=== PATIENT | female | born 1980 | race Caucasian/White ===

== ENCOUNTER 2017-12-04 20:10 | Inpatient (IN) | payer OTHER ==
[~2017-12-04] VITALS: Ht 172.7 cm; Wt 93.0 kg
--- NOTE | ~2017-12-04 | OR ---
[facility] [address], [place] [address] Draft DATE OF OPERATION: 12/04/2017 SURGEON: Alethea Arellano MD CARPET OR RUG LAYER HELPER: Sajan Fontenot MD PREOPERATIVE DIAGNOSIS: Premature rupture membranes at 35 and 6/7th weeks previous section breech presentation. POSTOPERATIVE DIAGNOSIS: Premature rupture membranes at 35 and 6/7th weeks previous section breech presentation, delivered. PROCEDURES PERFORMED: Repeat section. ANESTHESIA: Spinal. ESTIMATED BLOOD LOSS: 600 mL. DRAINS: Titus catheter. INDICATIONS AND FINDINGS: The patient is a 37-year-old female, 4, para 2-1-0-2, who was admitted at 35 and 6/7th weeks with spontaneous rupture of membranes and onset of labor. Her was remarkable for history of GDM, hypothyroidism, previous section, as well as a previous stillbirth at 24 weeks. She was counseled and taken to the operating room where a repeat section was performed with delivery of a little boy via lower segment transverse uterine incision as an incomplete breech with Apgars of 9 and 9 and weight of 7 pounds, 1 ounces. The uterus, tubes, ovaries, and placenta appeared normal. DESCRIPTION OF PROCEDURE: The patient was prepped and draped in a supine position. A repeat Pfannenstiel skin incision was made and carried down through the fascia and the incision was then extended laterally. The inferior and superior fascial flaps were then created. The muscles were PATIENT NAME: VICKEY ALBERTO OPERATIVE REPORT DATE OF : 82 REPORT #: [id number] PHYSICIAN: ALETHEA ARELLANO MD PCP: MEHRDAD PUENTE DO REPORT IS CONFIDENTIAL AND NOT TO BE RELEASED WITHOUT AUTHORIZATION [facility] [address], [place] [address] Draft bluntly divided and the peritoneum entered sharply and the incision extended superiorly and inferiorly. The Ted retractor was then placed and an incision was made at the upper aspect of the peritoneal reflection with delivery of a little boy via this incision. The placenta was removed manually and the uterus explored with a lap tape assuring no remaining fragments. The edges of the incision were identified and the uterus was closed in 2 layers using #0 Monocryl. The first layer was a running locking stitch and second was a vertical imbricating stitch. An additional [id number]-tw-vefjo was needed in the midportion for control of bleeding. Bleeding along the peritoneal edges was controlled with cautery. The abdomen was then copiously irrigated and inspected and hemostasis was noted. The retractor was then removed. The peritoneum identified with Sariah clamps. An ACell graft was laid over the lower segment to aid in healing. The peritoneum was then closed with a running suture of 3-0 Vicryl. The muscles were brought together in the midline with interrupted sutures of 0 Vicryl. Bleeding points were controlled with cautery. This layer was then irrigated and also noted to be hemostatic. ACell powder was sprinkled over the muscles to aid in healing. The fascia was then closed from each angle to the midline with a running suture of 0 Vicryl. The subcutaneous tissue was irrigated and bleeding points controlled with cautery. The subcutaneous was closed with a running suture of 3-0 Vicryl. The skin incision was closed with subcuticular suture of 3-0 Vicryl RAPIDE. This was followed by Mastisol and Steri-Strips. All sponge and needle counts were correct. The patient tolerated the procedure well and was taken to the recovery room in good condition. Alethea Arellano MD PJW/MODL /[id number] cc: MD Dr. Nikko Peña. Copies: SAJAN FONTENOT MD ~ PATIENT NAME: VICKEY ALBERTO OPERATIVE REPORT DATE OF : 82 REPORT #: [id number] PHYSICIAN: ALETHEA ARELLANO MD PCP: MEHRDAD PUENTE DO REPORT IS CONFIDENTIAL AND NOT TO BE RELEASED WITHOUT AUTHORIZATION
--- OUTSIDE RECORDS SUMMARY | ~2017-12-04 | XMS | Clinical Summary ---
Demographics + + + | Address | [address] [address] [address] | | | [place] [address] | + + + | Home Phone | | + + + | Preferred Language | Unknown | + + + | Marital Status | | + + + | Restorationism Affiliation | Unknown | + + + | Race | Unknown | + + + | Ethnic Group | Unknown | + + + Author + + + | Author | [facility] | | | and [place] | + + + | Organization | [facility] | | | and [place] | + + + | Address | Unknown | + + + | Phone | Unavailable | + + + Support + + +---------+ + | Name | Relationship | Address | Phone | + + +---------+ + | Tammy Alves | ECON | Unknown | | + + +---------+ + | Ángel Alberto | ECON | Unknown | | + + +---------+ + Care Team Providers + +------+ + | Care Gas Roller Operator Name | Role | Phone | + +------+ + | Tray Ziegler DO | PP | | + +------+ + Allergies + + + + + + | Active Allergy | Reactions | Severity | Noted | Comments | | | | | Date | | + + + + + + | Food | | | 06/11/19 | Proactive topical | | | | | 16 | | + + + + + + Current Medications + + +-------+---------+------+------+-------+ | Prescription | Sig. | Disp. | Refills | Star | End | Statu | | | | | | t | Date | s | | | | | | Date | | | + + +-------+---------+------+------+-------+ | estradiol | Take 2 mg by mouth | | | | | Activ | | (ESTRACE) 2 MG | Daily. | | | | | e | | tablet | | | | | | | + + +-------+---------+------+------+-------+ | ibuprofen | Take 600 mg by | | | | | Activ | | (ADVIL,MOTRIN) 600 | mouth. | | | | | e | | MG tablet | | | | | | | + + +-------+---------+------+------+-------+ | labetalol | Take 100 mg by mouth | | | | | Activ | | (NORMODYNE) 100 mg | 2 times daily. | | | | | e | | tablet | | | | | | | + + +-------+---------+------+------+-------+ | norethindrone | Take 1 tablet by | | | | | Activ | | (MICRONOR) 0.35 MG | mouth Daily. | | | | | e | | tablet | | | | | | | + + +-------+---------+------+------+-------+ | levothyroxine | Take 75 mcg by mouth | | | | | Activ | | (SYNTHROID, | Daily. | | | | | e | | LEVOTHROID) 75 MCG | | | | | | | | tablet | | | | | | | + + +-------+---------+------+------+-------+ | IRON PO | Take 27 mg by mouth. | | | | | Activ | | | | | | | | e | + + +-------+---------+------+------+-------+ | MULTIPLE | Take by mouth | | | | | Activ | | VITAMIN-FOLIC ACID | Daily. | | | | | e | | PO | | | | | | | + + +-------+---------+------+------+-------+ Active Problems + + + | Problem | Noted Date | + + + | Rectal bleeding | 06/15/2015 | + + + | Family history of malignant neoplasm of gastrointestinal tract | 06/15/2015 | + + + Immunizations + + + + | Name | Dates Previously Given | Next Due | + + + + | INFLUENZA, | 03/24/2014, 03/24/2012 | | | UNSPECIFIED | | | | FORMULATION | | | + + + + Family History + + +------+ + | Medical History | Relation | Name | Comments | + + +------+ + | Colon cancer | Father | | | + + +------+ + | Hypertension | Father | | | + + +------+ + | Other (see comment) | Maternal | | Leukemia (morphologic abnormality) | | | Grandfath | | | | | er | | | + + +------+ + | Arthritis | Maternal | | | | | Grandmoth | | | | | er | | | + + +------+ + | Diabetes | Maternal | | | | | Grandmoth | | | | | er | | | + + +------+ + | Hypertension | Maternal | | | | | Grandmoth | | | | | er | | | + + +------+ + | Other (see comment) | Maternal | | Malignant tumor of colon/rheumatic fever | | | Grandmoth | | | | | er | | | + + +------+ + | High cholesterol | Mother | | | + + +------+ + | Hypertension | Mother | | | + + +------+ + + +------+--------+ + | Relation | Name | Status | Comments | + +------+--------+ + | Father | | | | + +------+--------+ + | Maternal Grandfather | | | | + +------+--------+ + | Maternal Grandmother | | | | + +------+--------+ + | Mother | | | | + +------+--------+ + Social History + +-------+ +--------+------+ | Tobacco Use | Types | Packs/Day | Years | Date | | | | | Used | | + +-------+ +--------+------+ | Never Smoker | | | | | + +-------+ +--------+------+ + +---+---+---+ | Smokeless Tobacco: | | | | | Never Used | | | | + +---+---+---+ + + +---------+ + | Alcohol Use | Drinks/We | oz/Week | Comments | | | ek | | | + + +---------+ + | No | 0 | 0.0 | | | | Standard | | | | | drinks or | | | | | | | | | | equivalen | | | | | t | | | + + +---------+ + + + + | Sex Assigned at | Date Recorded | | | | + + + | Not on file | | + + + Last Filed Vital Signs + + + + | Vital Sign | Reading | Time Taken | + + + + | Blood Pressure | 105/67 | 06/18/2015 1300 PST | + + + + | Pulse | 89 | 06/18/2015 1300 PST | + + + + | Temperature | 36.7 C (98.1 F) | 06/18/2015 1000 PST | + + + + | Respiratory Rate | 16 | 06/18/2015 1230 PST | + + + + | Oxygen Saturation | 96% | 06/18/2015 1300 PST | + + + + | Inhaled Oxygen | - | - | | Concentration | | | + + + + | Weight | 89.4 kg (197 lb) | 06/18/2015 1000 PST | + + + + | Height | 170.2 cm (5' 7") | 06/18/2015 1000 PST | + + + + | Body Mass Index | 30.85 | 06/18/2015 1000 PST | + + + + Plan of Treatment + + + + + | Health Maintenance | Due Date | Last Done | Comments | + + + + + | Vaccine: | | | | | Dtap/Tdap/Td (1 - | 0 | | | | Tdap) | | | | + + + + + | Cervical Cancer | | | | | Screening (Pap) | 1 | | | + + + + + | Vaccine: Influenza | | 03/24/2014, 03/24/2012 | | | (#1) | 8 | | | + + + + + Results Not on filefrom Last 3 Months Insurance + +--------+ +------+ +---------+ | Payer | Benefi | Subscriber | Type | Phone | Address | | | t Plan | ID | | | | | | / | | | | | | | Group | | | | | + +--------+ +------+ +---------+ | [employer] | PHP | [id number] | PPO | +- | | | PLAN | [place] | | | [id number] | | [address] | | | | | | | [place] | | | | | + +--------+ +------+ +---------+ | [employer] | PHP | [id number] | PPO | +- | | | PLAN | [place] | | | [id number] | | | [address] | | | | | | | [address] | | | | | + +--------+ +------+ +---------+ + +--------+ +--------+ + + | Guarantor Name | Accoun | Relation to | Date | Phone | Billing Address | | | t Type | Patient | of | | | | | | | | | | + +--------+ +--------+ + + | VICKEY ALBERTO | Person | Self [birth year] | Home: | [address] | | [place] | [place] | | 1980 | [phone] [place] [address] | | | shivam | | | [phone] | | + +--------+ +--------+ + +
[~2017-12-04 20:10] MED LIST: BACTRIM DS TAB1 EACH PO; KEFLEX500 MG PO; LABETALOL HCL100 MG PO; NORCO 5-325 TA1 EACH PO; SYNTHROID75 MCG PO
--- NOTE | 2017-12-05 08:43 | PR ---
[facility] [address] [facility] [place], [place] [address] Signed PP Progress Notes Datetime Report Generated by CPSammi: 12/05/2017 08:43 SUBJECTIVE: [id number] Pain: Within normal limits Nausea/Vomiting: Denies Flatus: No Vital Signs: [id number] Vital Signs: Reviewed; Within Normal Limits EXAM: [id number] Cardiovascular: Normal Respiratory: Normal Abdomen/Uterus: Abnormal Lochia: Normal Vulva/Perineum: Not Done Breasts: Not Done CVA Tenderness: Not Done Extremities: Normal Incision: Normal Progress: Abnormal Exam Comments: Abdomen with active BS. Fundus firm, NT @ U-1. H/H 10.3/33.6, WBC 16.8, plat 312k IMPRESSION/PLAN/PROCEDURES: [id number] Impression: Normal progression Other Plans: ambulate, shower Progress Notes: Doing well. Baby at [facility] for RDS and is doing well at this time per mom. Signing Physician: Alethea Arellano MD Copies: ~ *Electronically Signed* 12/05/17 0843 ALETHEA ARELLANO MD PATIENT NAME: VICKEY ALBERTO PROGRESS NOTE DATE OF : 82 PHYSICIAN: ALETHEA ARELLANO MD RPT #: [id number] REPORT IS CONFIDENTIAL AND NOT TO BE RELEASED WITHOUT AUTHORIZATION
== END 2017-12-06 09:34 | disposition home or self-care (01) | DRG 766 ==
LOC: FBCO 20:10 → FBC 21:07
PROVIDERS: ADMIT Obstetrics & Gynecology
PROC: 10D00Z1 Extraction of Products of Conception, Low, Open Approach (ICD-10-PCS; principal; 2017-12-04 21:37)
DX: O42.013 Preterm premature rupture of membranes, onset of labor within 24 hours of rupture, third trimester (principal); O34.211 Maternal care for low transverse scar from previous cesarean delivery; O32.8XX0 Maternal care for other malpresentation of fetus, not applicable or unspecified; Z3A.35 35 weeks gestation of pregnancy; Z37.0 Single live birth; O24.420 Gestational diabetes mellitus in childbirth, diet controlled
CPT/HCPCS: 01961; 36415; 85027; C1763; J0690; J2274; J2300; J2405; J2550; J2590; J7120